=== PATIENT | female | born 1985 | race Caucasian/White ===

== ENCOUNTER → 2020-03-14 09:39 | Outpatient (CLI) | payer OTHER | END | disposition home or self-care (01) | LOC: D.RAD 09:39 | PROVIDERS: ATTEND Obstetrics & Gynecology | DX: E28.2 Polycystic ovarian syndrome (principal) ==

== ENCOUNTER 2020-09-06 05:30 | Day surgery (SDC) | payer OTHER ==
[2020-09-03 16:58] LABS: BASOPHILS 0.7 % (0-2); EOSINOPHILS 4.6 % (0-7); HEMATOCRIT 39.7 % (36.0-48.0); HEMOGLOBIN 13.2 g/dL (12-16); IMMATURE GRANULOCYTES 0.1 % (0-5); LYMPHOCYTE ABS# 2.38 10x3/uL (1.18-3.74); LYMPHOCYTES 33.1 % (15-50); MCH 29.8 pg (26.0-34.0); MCHC 33.2 g/dL (31.0-37.0); MCV 89.6 fL (80.0-100.0); MEAN PLATELET VOLUME 10.5 fL (7.4-10.4); MONOCYTES 10.6 % (2-11); NEUTROPHIL ABS# 3.67 10x3/uL (1.56-6.13); NEUTROPHILS 50.9 % (40-80); PLATELET COUNT 312 10x3/uL (130-400); RBC 4.43 10x6/uL (4.00-5.40); RDW 13.6 % (11.5-14.5); WBC 7.2 10x3/uL (4.8-10.8)
[~2020-09-06] VITALS: Ht 157.5 cm; Wt 78.0 kg
--- NOTE | ~2020-09-06 | OP ---
PATIENT NAME: ALEXANDER CHOWDHURY MEDICAL RECORD: [id number] :87 LOCATION:D.[facility]ERLY [facility] ADMISSION DATE: SURGEON: ANJELICA WAY MD DATE OF OPERATION: 09/06/2020 PREOPERATIVE DIAGNOSES: 1. Suspected hydrosalpinx. 2. Pelvic pain. POSTOPERATIVE DIAGNOSES: 1. Grossly normal appearing anatomy. 2. Positive bilateral chromopertubation. SURGEON: Anjelica Way PROCEDURE: Laparoscopy and chromopertubation. ANESTHESIA: General endotracheal. INTRAVENOUS FLUIDS: Per anesthesia record. SPECIMENS: None. COMPLICATIONS: None. FINDINGS: 1. Grossly normal-appearing uterus, fallopian tubes and ovaries bilaterally. 2. Spillage of methylene blue from both distal tubal ends during chromopertubation. PROCEDURE IN DETAIL: The patient was taken to the operating room where general anesthesia was achieved without any difficulty. The patient was then prepped and draped in normal sterile fashion in the dorsal lithotomy position in the [facility]. At that point, a Campbell catheter was placed and a Graves speculum was placed into the vagina. The cervix was grasped on its anterior lip with a single tooth tenaculum and an acorn uterine manipulator was inserted into the cervical opening and connected to the tenaculum. Following the draping, a 5-mm skin incision was made infraumbilically and the 5-mm bladeless trocar was used to enter the intraperitoneal space under direct visualization with the laparoscope. The introducer was removed and the scope replaced and intraperitoneal placement was confirmed visually. The patient was insufflated and opening pressure was found to be less than 8 mmHg. Following full insufflation, a second port was placed in the midline approximately 4 cm above the pubic symphysis. A 5-mm skin incision was made and the second 5-mm bladeless trocar was used to enter the intraperitoneal space under direct visualization of the laparoscope. Survey of the abdomen and pelvis were performed. At this point, a chromopertubation was performed using approximately 40 mL of methylene blue. Immediate spillage was noted from the end of the left fallopian tube followed by delayed, but copious spillage on the right as well. The chromopertubation was stopped. The patient was then desufflated and the laparoscopic sites were repaired with 3-0 Vicryl in an interrupted fashion. The tenaculum and acorn manipulator were then removed. The patient tolerated the procedure well and was transferred to postanesthesia recovery stable without incident. OPERATIVE REPORT [id number] ALEXANDER CHOWDHURY TRANSINT:[id number] Voice Confirmation ID: [id number] DOCUMENT ID: [id number] ANJELICA WAY MD CC: [id number] DICTATION DATE: 09/12/20 1518 [employer]: 09/12/20 1653 [facility] 09/06/20 [place] [id number]
[~2020-09-06 05:30] MED LIST: ADIPEX-P37.5 M1 PO; CLARITIN 10 MG10 MG PO; IMITREX100 MG PO; PROPRANOLOL HCL20 MG PO; SYNTHROID112 MCG PO; TROKENDI 100 MG PO
[2020-09-06 06:44] VITALS: BP 113/62; Ht 157.5 cm; Wt 78.0 kg
[2020-09-06 06:49] LABS: HCG URINE NEGATIVE (NEGATIVE)
--- NOTE | 2020-09-06 14:29 | NUR ---
IV D/C'D WITH CANNULA INTACT, PRESSURE HELD AND DRSG PLACED. DISCHARGE INTRUCTIONS GIVEN AND PT VERBALIZED AN UNDERSTANDING. REPORTS PAIN 1-2. DISCHARGED IN STABLE CONDITION
== END 2020-09-06 11:35 | disposition home or self-care (01) ==
LOC: D.OPS 05:30
PROVIDERS: ATTEND Obstetrics & Gynecology
DX: R10.2 Pelvic and perineal pain (principal); N70.11 Chronic salpingitis; G43.909 Migraine, unspecified, not intractable, without status migrainosus; E03.9 Hypothyroidism, unspecified